=== PATIENT | male | born 1995 | race Two or more races ===

== ENCOUNTER 2019-10-07 15:11 | Emergency (ER) | payer SELFPAY ==
[~2019-10-07] VITALS: Ht 175.3 cm; Wt 63.6 kg
[2019-10-07] MEDS ORDERED: ONDANSETRON PF 4 MG/2 ML VIAL. IVP ONE (15:45)
[2019-10-07] MEDS ORDERED: MORPHINE SULFATE 2 MG/ML VIAL. IV ONE (15:45)
[2019-10-07 16:18] LABS: BASO # 0.1 x10^3/uL (0.0-0.2); BASO % 1 % (0-3); EOS # 0.2 x10^3/uL (0.0-0.7); EOS % 2 % (0-3); HEMATOCRIT 41.8 % (39.0-53.0); HEMOGLOBIN 13.9 g/dL (13.0-17.5); LYMPH # 2.5 x10^3/uL (1.0-4.8); LYMPH % 34 % (24-48); MEAN CORPUSCULAR HEMOGLOBIN 29 pg (25-35); MEAN CORPUSCULAR HGB CONC 33 g/dL (31-37); MEAN CORPUSCULAR VOLUME 86 fL (79-100); MONO # 0.5 x10^3/uL (0.0-1.1); MONO % 7 % (0-9); NEUT # 4.1 x10^3/uL (1.8-7.7); NEUT % 56 % (31-73); PLATELET COUNT 255 x10^3/uL (140-400); RED BLOOD COUNT 4.84 x10^6/uL (4.30-5.70); RED CELL DISTRIBUTION WIDTH 14.8 % (11.5-14.5); WHITE BLOOD COUNT 7.3 x10^3/uL (4.0-11.0)
[2019-10-07 16:30] LABS: CREATININE 0.9 mg/dL (0.7-1.3); GFR 106.5
[2019-10-07] MEDS ORDERED: IOHEXOL 300 MG/ML 100ML VIAL. IV ONE (17:00)
[2019-10-07] MEDS ORDERED: CONTRAST GIVEN. MC PRN (17:00)
--- NOTE | 2019-10-07 17:22 | RAD ---
EXAM: CT Abdomen and Pelvis with IV contrast CLINICAL HISTORY: Reason: ACUTE RT LOW INGUINAL PAIN AFTER LIFTING HEAVY OBJECT, R/O HEARNIA COMPARISON: none TECHNIQUE: Helical CT of the abdomen and pelvis was performed following the administration of IV contrast. Axial, coronal and sagittal reformatted images were generated. ---PQRS compliance statement - One or more of the following individualized dose reduction techniques were utilized for this study: 1. Automated exposure control 2. Adjustment of the mA and/or kV according to patient size 3. Use of iterative reconstruction technique--- FINDINGS: Lower chest: Lung bases are clear. Abdomen and pelvis: Liver and biliary system: No focal liver lesion. Gallbladder is normal. No biliary ductal dilatation. Spleen: Unremarkable Pancreas: Unremarkable Adrenal glands: Unremarkable Kidneys: Symmetric nephrograms. No focal renal lesion. No hydronephrosis. No hydroureter. Lymph nodes/retroperitoneum: No abdominal or pelvic lymphadenopathy. Vessels: Aorta is normal in caliber. Bowel/Peritoneal cavity: Moderate colonic stool content is seen. No small or large bowel dilatation to suggest bowel obstruction. Appendix is not seen. Clips at the base of the cecum likely from prior appendectomy. No abdominal or pelvic ascites. There is trace fluid in the right inguinal canal, of uncertain clinical significance but may be related to provided history of injury. Abdominal wall: Unremarkable Bladder: Unremarkable Bones: No aggressive osseous lesion is seen. Scattered sclerotic foci likely bone islands. IMPRESSION: 1. No definite inguinal hernia is seen. Trace right inguinal fluid is nonspecific but may be traumatic, given provided history of injury. 2. No definite acute fracture is seen. Electronically signed by: Harrison Boone MD (10/07/2019 5:19 PM) [facility]
--- NOTE | 2019-10-07 17:40 | PHYS DOC ---
Past Medical History Past Medical History: Asthma, Bronchitis Past Surgical History: Appendectomy Smoking Status: Current Every Day Smoker Additional Information: 2 CIG/DAY Alcohol Use: Occasionally Drug Use: None General Adult EDM: Chief Complaint: GROIN PAIN HPI: HPI: Patient is a 23 year old male who presents with sudden onset of right inguinal area pain that happened at approximately 10 AM while lifting heavy buckets at work. Patient reports feeling a pop in the area and then a sudden onset of pain that he describes as a 7/10 pain scale. Patient states that his testicles do not hurt, patient states he has no penile discharge, patient states he has no STI concerns. Patient states his only health history is he had an appendectomy when he was 13 years old and has asthma which he takes albuterol MDI and uses home nebulizer treatments as needed during asthma attacks. Patient currently denies any fever or chills and has no concerns for the COVID-19 virus nor has he been exposed to the COVID-19 virus as far as he is aware. Patient denies any visual changes, any nasal congestion, cough, shortness of breath, chest pain, or swelling of his extremities. Patient denies any abdominal pain, nausea, vomiting, diarrhea, constipation. Patient denies any problems urinating. Patient denies any back pain or pain in his joints denies any skin rashes, headaches, focal weaknesses or sensory changes. Patient denies any swelling of his glands. Patient denies any recent life changes, anxieties, homicidal suicidal ideations. Review of Systems: Review of Systems: Constitutional: Denies fever or chills. Eyes: Denies change in visual acuity. HENT: Denies nasal congestion or sore throat. Respiratory: Denies cough or shortness of breath. Cardiovascular: Denies chest pain or edema. GI: Denies abdominal pain, nausea, vomiting, bloody stools or diarrhea. : Denies dysuria. Complains of pain in the inguinal right-sided area. Musculoskeletal: Denies back pain or joint pain. Integument: Denies rash. Neurologic: Denies headache, focal weakness or sensory changes. Lymphatic: Denies swollen glands. Psychiatric: Denies depression or anxiety. Heart Score: Risk Factors: Risk Factors: DM, Current or recent (<one month) smoker, HTN, HLP, family history of CAD, obesity. Risk Scores: Score 0 - 3: 2.5% MACE over next 6 weeks - Discharge Home Score 4 - 6: 20.3% MACE over next 6 weeks - Admit for Clinical Observation Score 7 - 10: 72.7% MACE over next 6 weeks - Early Invasive Strategies Current Medications: Current Medications Medications (Trade) Dose Ordered Sig/Melvin Start Time Stop Time Status Last Admin Dose Admin Info (CONTRAST GIVEN -- Rx MONITORING) 1 each PRN DAILY PRN 10/07/19 17:00 10/09/19 16:59 Iohexol (Omnipaque 300 Mg/ml) 75 ml 1X ONCE 10/07/19 17:00 10/07/19 17:01 DC 10/07/19 17:03 75 ML Morphine Sulfate (Morphine Sulfate) 2 mg 1X ONCE 10/07/19 15:45 10/07/19 15:46 DC 10/07/19 17:18 2 MG Ondansetron HCl (Zofran) 4 mg 1X ONCE 10/07/19 15:45 10/07/19 15:46 DC 10/07/19 17:17 4 MG Allergies: Allergies: Allergies Coded Allergies Type Severity Reaction Last Updated Verified No Known Drug Allergies 01/18/14 No Physical Exam: PE: Constitutional: Well developed, well nourished, no acute distress, non-toxic appearance. [] HENT: Normocephalic, atraumatic, bilateral external ears normal, oropharynx moist, no oral exudates, nose normal. [] Eyes: PERRLA, EOMI, conjunctiva normal, no discharge. [] Neck: Normal range of motion, no tenderness, supple, no stridor. [] Cardiovascular:Heart rate regular rhythm, no murmur [] Lungs & Thorax: Bilateral breath sounds clear to auscultation [] Abdomen: Bowel sounds normal, soft, no tenderness, no masses, no pulsatile masses. [] Skin: Warm, dry, no erythema, no rash. [] Back: No tenderness, no CVA tenderness. [] Extremities: No tenderness, no cyanosis, no clubbing, ROM intact, no edema. [] Neurologic: Alert and oriented X 3, normal motor function, normal sensory function, no focal deficits noted. [] Psychologic: Affect normal, judgement normal, mood normal. [] Current Patient Data: Labs: Laboratory Tests Test 10/07/19 16:00 White Blood Count 7.3 x10^3/uL (4.0-11.0) Red Blood Count 4.84 x10^6/uL (4.30-5.70) Hemoglobin 13.9 g/dL (13.0-17.5) Hematocrit 41.8 % (39.0-53.0) Mean Corpuscular Volume 86 fL (79-100) Mean Corpuscular Hemoglobin 29 pg (25-35) Mean Corpuscular Hemoglobin Concent 33 g/dL (31-37) Red Cell Distribution Width 14.8 % (11.5-14.5) H Platelet Count 255 x10^3/uL (140-400) Neutrophils (%) (Auto) 56 % (31-73) Lymphocytes (%) (Auto) 34 % (24-48) Monocytes (%) (Auto) 7 % (0-9) Eosinophils (%) (Auto) 2 % (0-3) Basophils (%) (Auto) 1 % (0-3) Neutrophils # (Auto) 4.1 x10^3/uL (1.8-7.7) Lymphocytes # (Auto) 2.5 x10^3/uL (1.0-4.8) Monocytes # (Auto) 0.5 x10^3/uL (0.0-1.1) Eosinophils # (Auto) 0.2 x10^3/uL (0.0-0.7) Basophils # (Auto) 0.1 x10^3/uL (0.0-0.2) Sodium Level 139 mmol/L (136-145) Potassium Level 4.0 mmol/L (3.5-5.1) Chloride Level 102 mmol/L (98-107) Carbon Dioxide Level 28 mmol/L (21-32) Anion Gap 9 (6-14) Blood Urea Nitrogen 13 mg/dL (8-26) Creatinine 0.9 mg/dL (0.7-1.3) Estimated GFR (Cockcroft-Gault) 106.5 Glucose Level 91 mg/dL (70-99) Calcium Level 9.0 mg/dL (8.5-10.1) Laboratory Tests 10/07/19 16:00 Laboratory Tests 10/07/19 16:00 Vital Signs: Vital Signs Date Time Temp Pulse Resp B/P (MAP) Pulse Ox O2 Delivery O2 Flow Rate FiO2 10/07/19 17:18 18 100 Room Air 10/07/19 15:56 114/64 (81) 10/07/19 15:26 77 10/07/19 15:20 98.2 98.2 EKG: EKG: [] Radiology/Procedures: Radiology/Procedures: CLINICAL HISTORY: Reason: ACUTE RT LOW INGUINAL PAIN AFTER LIFTING HEAVY OBJECT, R/O HEARNIA COMPARISON: none TECHNIQUE: Helical CT of the abdomen and pelvis was performed following the administration of IV contrast. Axial, coronal and sagittal reformatted images were generated. ---PQRS compliance statement - One or more of the following individualized dose reduction techniques were utilized for this study: 1. Automated exposure control 2. Adjustment of the mA and/or kV according to patient size 3. Use of iterative reconstruction technique--- FINDINGS: Lower chest: Lung bases are clear. Abdomen and pelvis: Liver and biliary system: No focal liver lesion. Gallbladder is normal. No biliary ductal dilatation. Spleen: Unremarkable Pancreas: Unremarkable Adrenal glands: Unremarkable Kidneys: Symmetric nephrograms. No focal renal lesion. No hydronephrosis. No hydroureter. Lymph nodes/retroperitoneum: No abdominal or pelvic lymphadenopathy. Vessels: Aorta is normal in caliber. Bowel/Peritoneal cavity: Moderate colonic stool content is seen. No small or large bowel dilatation to suggest bowel obstruction. Appendix is not seen. Clips at the base of the cecum likely from prior appendectomy. No abdominal or pelvic ascites. There is trace fluid in the right inguinal canal, of uncertain clinical significance but may be related to provided history of injury. Abdominal wall: Unremarkable Bladder: Unremarkable Bones: No aggressive osseous lesion is seen. Scattered sclerotic foci likely bone islands. IMPRESSION: 1. No definite inguinal hernia is seen. Trace right inguinal fluid is nonspecific but may be traumatic, given provided history of injury. 2. No definite acute fracture is seen. Electronically signed by: Harrison Sandoval MD (10/07/2019 5:19 PM) [facility]ENTER[facility] DICTATED and SIGNED BY: HARRISON SANDOVAL MD DATE: 10/07/19 171 Course & Med Decision Making: Course & Med Decision Making Pertinent Labs and Imaging studies reviewed. (See chart for details) 23-year-old patient presents to the emergency department with acute onset right inguinal pain, vital signs were reviewed, labs and imaging were ordered related to physical exam concerning of a nonreducible hernia in the right inguinal area. CT exam was nonconclusive for inguinal hernia, upon reexamination the hernia had self reduced. Discussed case with ED attending Dr. York who examined the patient and did agree that the patient had a reducible inguinal hernia. Patient presented complaint as if he was unaware of this hernia, but then after reexamination patient states that this does happen off and on over the past few years. Stating his main concern was he had not had this much pain with his hernia in the past. Discussed discharged home and follow-up with surgeon with patient. Patient gave verbal understanding of discharge instructions, no prescriptions will be written for this visit. Patient was given return to ER precautions concerns, patient had no further questions or concerns. Patient discharged to home Dragon Disclaimer: Dragon Disclaimer: This electronic medical record was generated, in whole or in part, using a voice recognition dictation system. Departure Departure Impression: Primary Impression: Inguinal hernia Qualified Codes: K40.91 - Unilateral inguinal hernia, without obstruction or gangrene, recurrent Referrals: NO PCP (PCP) ALIDA MONROE MD Patient Instructions: Hernia Additional Instructions: Please follow-up with the recommended general surgeon to have your hernia repaired, return to the emergency department for increased pain or worsening symptoms or further concerns. Follow-up with your doctor soon. Justicifation of Admission Dx: Justifications for Admission: Justification of Admission Dx: N/A MICHELE MONTERO APRN Oct 07, 2019 17:40
[2019-10-07 18:30] VITALS: BP 118/62
[2019-10-08] MEDS ORDERED: IOHEXOL 300 MG/ML 100ML VIAL. ONE (00:05)
== END 2019-10-07 18:47 | disposition home or self-care (01) ==
LOC: ER 15:11
DX: K40.91 Unilateral inguinal hernia, without obstruction or gangrene, recurrent (principal); R10.31 Right lower quadrant pain; J45.909 Unspecified asthma, uncomplicated; F17.210 Nicotine dependence, cigarettes, uncomplicated; Z90.89 Acquired absence of other organs
CPT/HCPCS: 36415; 74177; 80048; 85025; 96374; 96375; 99285; J2270; J2405; Q9967